=== PATIENT | male | born 1970 | race Caucasian/White ===

== ENCOUNTER → 2018-10-24 15:29 | Outpatient (CLI) | payer OTHER, SELFPAY ==
--- NOTE | 2018-10-24 | DI.MRI.S_ITS ---
PROCEDURE: MR KNEE LT WO CON INDICATIONS: BILATERAL KNEE PAIN - left TECHNIQUE: Noncontrast sagittal PD fast spin echo and T2 fast spin echo with fat saturation, sagittal 3-D FLASH with fat saturation; coronal T1 spin echo and PD fast spin echo with fat saturation, and axial PD fast spin echo with fat saturation through the knee. COMPARISON: None. FINDINGS: Image quality: Excellent. Menisci: The medial and lateral menisci demonstrate normal morphology and internal signal. The meniscal root ligaments appear intact. Cruciate ligaments: The anterior and posterior cruciate ligaments appear intact. Medial structures: The medial collateral ligament appears intact. The posterior oblique ligament, semimembranosus tendon insertions, oblique popliteal ligament, and meniscocapsular junction appear intact. Visualized portions of the pes anserinus tendons appear normal. No abnormal bursal fluid. Lateral structures: The lateral collateral ligament, long and short heads of the biceps femoris tendon appear intact. The popliteus tendon appears normal; the popliteofibular ligament appears intact. The posterosuperior and anteroinferior popliteomeniscal fascicles appear intact. The arcuate and fabellofibular ligaments appear intact, on either side of the lateral inferior geniculate artery. Iliotibial band appears normal. Anterior structures: The quadriceps and patellar tendons appear intact. Patellar alignment is normal. No femoral trochlear dysplasia or ventral trochlear prominence. No edema in the infrapatellar fat pad. Bones and cartilage: No bone marrow contusions or fractures. There is mild thinning and fissuring of the articular cartilage of the medial femoral condyle. Small, focal, full-thickness articular cartilage defect noted at the patellar apex. Subchondral reactive change noted in the apex of the patella deep to the articular cartilage defect. Joint space: There is trace joint effusion. No Damian's cyst. Normal appearing synovial plicae are incidentally noted. IMPRESSION: 1. Small, full-thickness, articular cartilage defect at the apex of the patella. 2. Mild articular cartilage degenerative changes involving the medial femoral condyle. 3. Trace joint effusion. 4. No internal derangement. Dictated by: Sapna Barriga MD, PhD on 10/24/2018 at 18:05 Approved by: Sapna Barriga MD, PhD on 10/25/2018 at 8:58
--- NOTE | 2018-10-24 | DI.MRI.S_ITS ---
PROCEDURE: MR KNEE RT WO CON INDICATIONS: BILATERAL KNEE PAIN - right TECHNIQUE: Noncontrast sagittal PD fast spin echo and T2 fast spin echo with fat saturation, sagittal 3-D FLASH with fat saturation; coronal T1 spin echo and PD fast spin echo with fat saturation, and axial PD fast spin echo with fat saturation through the knee. COMPARISON: None. FINDINGS: Image quality: Excellent. Menisci: The medial and lateral menisci demonstrate normal morphology and internal signal. The meniscal root ligaments appear intact. Cruciate ligaments: The anterior and posterior cruciate ligaments appear intact. Medial structures: The medial collateral ligament appears intact. The posterior oblique ligament, semimembranosus tendon insertions, oblique popliteal ligament, and meniscocapsular junction appear intact. Visualized portions of the pes anserinus tendons appear normal. No abnormal bursal fluid. Lateral structures: The lateral collateral ligament, long and short heads of the biceps femoris tendon appear intact. The popliteus tendon appears normal; the popliteofibular ligament appears intact. The posterosuperior and anteroinferior popliteomeniscal fascicles appear intact. The arcuate and fabellofibular ligaments appear intact, on either side of the lateral inferior geniculate artery. Iliotibial band appears normal. Anterior structures: The quadriceps and patellar tendons appear intact. There is slight thickening with increased internal signal involving the patellar tendon compatible with mild tendinosis. Patellar alignment is normal. No femoral trochlear dysplasia or ventral trochlear prominence. No edema in the infrapatellar fat pad. Bones and cartilage: No bone marrow contusions or fractures. There is thinning and fissuring of the articular cartilage of the patellofemoral and medial compartments. Subchondral reactive change and cyst formation noted in the medial femoral condyle and the patella. Small tricompartmental marginal osteophytes. Joint space: There is physiologic knee joint fluid. No Damian's cyst. Normal appearing synovial plicae are incidentally noted. IMPRESSION: 1. 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 Mild lateral compartment osteoarthritis. 2. No internal derangement. Dictated by: Sapna Barriga MD, PhD on 10/24/2018 at 16:21 Approved by: Sapna Barriga MD, PhD on 10/25/2018 at 8:54
== END ==
PROVIDERS: Visit Provider General Practice
DX: M25.562 Pain in left knee (principal); M25.561 Pain in right knee; M17.11 Unilateral primary osteoarthritis, right knee
CPT/HCPCS: 73721

== ENCOUNTER → 2020-10-14 09:39 | Outpatient (CLI) | payer OTHER, SELFPAY ==
--- NOTE | 2020-10-14 | DI.MRI.S_ITS ---
PROCEDURE: MR HEAD/BRAIN WO CON INDICATIONS: Other amnesia TECHNIQUE: Noncontrast axial T1 spin echo, axial T2 fast spin echo, sagittal and axial FLAIR, coronal T2 fast spin echo, axial gradient echo, axial diffusion and ADC through the brain. COMPARISON: None. FINDINGS: Image quality: Excellent. CSF Spaces: Basal cisterns are patent. No extra-axial fluid collections. Ventricles are normal in size and shape. Brain: No intracranial masses or hemorrhage. Bender/white matter interface is normal. Brainstem appears normal. Diffusion-weighted images demonstrate no acute ischemic insult. No chronic ischemic insults. Normal intravascular flow voids are present. Skull and face: Calvarium has normal marrow signal. Orbits appear normal. Sinuses: Mild mucosal thickening in the bilateral sphenoid, ethmoid, and maxillary sinuses. Mastoids are clear. Sinuses and mastoids are otherwise clear. IMPRESSION: 1. Negative evaluation of the brain. No explanation for amnesia. 2. No acute process. No recent infarct. 3. Mild sinus disease. Dictated by: Zana Muhammad M.D. on 10/14/2020 at 10:23 Approved by: Zana Muhammad M.D. on 10/14/2020 at 10:24
== END ==
PROVIDERS: PCP Student in an Organized Health Care Education/Training Program; Referring Provider Student in an Organized Health Care Education/Training Program; Visit Provider Student in an Organized Health Care Education/Training Program
DX: R41.3 Other amnesia (principal); J32.8 Other chronic sinusitis
CPT/HCPCS: 70551

== ENCOUNTER → 2021-08-23 11:33 | Outpatient (CLI) | payer OTHER, SELFPAY ==
[2021-08-23 14:19] LABS: COVID19 -Nasal RAPID Negative (Negative)
== END ==
PROVIDERS: PCP Student in an Organized Health Care Education/Training Program; Visit Provider Family Medicine Sleep Medicine
DX: Z20.822 Contact with and (suspected) exposure to COVID-19 (principal)
CPT/HCPCS: 87635; C9803

== ENCOUNTER 2021-08-25 09:51 | Day surgery (SDC) | payer OTHER, SELFPAY ==
[2021-08-25 10:22] VITALS: BP 141/78; PULSE 69; RESP 14; TEMP 36.6; BMI 30.1
[2021-08-25] MEDS: SODIUM CHLORIDE 0.9% 1,000 ML 84 ML IV (10:22)
--- NOTE | 2021-08-25 10:58 | PM.HP.1 ---
History of Present Illness History of Present Illness Date Patient Seen: 08/25/21 Chief complaint: SDC Narrative: Screening Patient History Family & Social History Social History: household members spouse Tobacco & Substance use: Smoking Status Former smoker alcohol intake current alcohol intake frequency 3 or more drinks per day Substance Use Type does not use Meds Home Medications and Allergies Home Medications Medication Instructions Recorded Confirmed Type gabapentin 100 mg capsule 100 mg PO TID PRN #0 04/26/16 08/25/21 History multivitamin-iron 9 mg-folic acid 1 tab PO QDAY #60 tab 05/06/16 08/25/21 Rx 400 mcg-calcium and minerals tablet (Thera M Plus (ferrous fumarate)) atorvastatin 40 mg tablet 40 mg PO DAILY 08/25/21 08/25/21 History Allergies Allergy/AdvReac Type Severity Reaction Status Date / Time No Known Allergies Allergy Uncoded 08/25/21 10:09 Exam Vital Signs (past 8 hours): - 08/25/21 10:22 Temperature 97.8 F Pulse Rate 69 Respiratory Rate 14 Blood Pressure 141/78 H Oxygen Delivery Method Room Air Narrative Exam Narrative: Oropharynx free of lesions Chest clear to auscultation percussion Cardiac exam reveals no S3 or murmur Assessment & Plan Assessment & Plan narrative: First colonoscopy screening. Risks benefits alternatives been explained. Time Spent With Patient Critical Care time: I spent a total of [] minutes of critical care time on this patient's care today; this time is exclusive of procedural time.
--- NOTE | 2021-08-25 10:59 | P.OP.COLON_ITS ---
Operative Date/Time/Diagnoses Date of procedure: 08/25/21 Pre-op diagnosis: See indication and findings Procedure & Clinicians Study performed: Colonoscopy Indications: Screening Surgeon: Belen Cook Procedure Notes Procedure in detail: After informed consent was obtained the patient was placed in left lateral d ecubitus position. The video colonoscope was introduced to the rectum and slowly advanced cecum. On slow withdrawal mucosa was carefully examined. The scope was removed. The patient tolerated procedure well. Blood loss none Complications none Sedation mac Findings 1. Normal colonoscopy to cecum Patient will receive notification for follow-up colonoscopy in 10 years.
[2021-08-25 11:19] VITALS: BP 105/67; PULSE 70; RESP 15; TEMP 37.2; O2SAT 95
[2021-08-25 11:24] VITALS: BP 110/60; PULSE 70; RESP 18; O2SAT 96
[2021-08-25 11:29] VITALS: BP 113/72; PULSE 65; RESP 14; O2SAT 98
[2021-08-25 11:36] VITALS: BP 114/71; PULSE 62; RESP 15; O2SAT 98
== END 2021-08-25 11:48 | disposition home or self-care (01) ==
PROVIDERS: PCP Student in an Organized Health Care Education/Training Program; Referring Provider Internal Medicine Gastroenterology; Visit Provider Internal Medicine Gastroenterology
PROC: 0DJD8ZZ Inspection of Lower Intestinal Tract, Via Natural or Artificial Opening Endoscopic (ICD-10-PCS; CPT 45378; principal; 2021-08-25 11:00)
DX: Z12.11 Encounter for screening for malignant neoplasm of colon (principal)
CPT/HCPCS: 45378; J2704

== ENCOUNTER → 2022-04-28 10:23 | Outpatient (CLI) | payer OTHER, SELFPAY ==
--- NOTE | 2022-04-28 | DI.RAD.S_ITS ---
PROCEDURE: XR CHEST 2V INDICATIONS: HYPERTENSION TECHNIQUE: 2 views of the chest were acquired. COMPARISON: [facility], , CHEST FOR PICC PLACEMENT, 05/02/2016, 16:51. FINDINGS: Surgical changes and devices: None. Lungs and pleura: Lungs are clear. No pleural effusions or pneumothorax. Mediastinum: Mediastinal contours are normal. Heart size is normal. Bones and chest wall: No suspicious bony abnormalities. Soft tissues appear unremarkable. IMPRESSION: No acute cardiopulmonary abnormality. Dictated by: Darryl Bob M.D. on 04/28/2022 at 12:54 Approved by: Darryl Bob M.D. on 04/28/2022 at 12:54
== END ==
PROVIDERS: PCP Internal Medicine; Referring Provider Internal Medicine; Visit Provider Internal Medicine
DX: I10 Essential (primary) hypertension (principal)
CPT/HCPCS: 71046

== ENCOUNTER → 2023-07-03 15:41 | Outpatient (CLI) | payer OTHER, SELFPAY ==
--- NOTE | 2023-07-03 | DI.US.S_ITS ---
PROCEDURE: US RENAL COMPLETE INDICATIONS: ABDOMINAL PAIN TECHNIQUE: Real-time scanning was performed of the kidneys and bladder, with image documentation. COMPARISON: None. FINDINGS: Kidneys: Kidneys are normal in size. Right kidney measures 10.2 cm long; left kidney measures 12.0 cm long. Right renal cortical thickness is 1.6 cm; left renal cortical thickness is 1.7 cm. Renal cortical echotexture is normal. No hydronephrosis or nephrolithiasis. No suspicious solid mass lesions. Bladder: Pre-void bladder volume is 121.0 mL. Post-void residual is 4.0 mL. Pre-void images demonstrate no intraluminal masses or stones. On pre-void images, bilateral ureteral jets are noted with color Doppler interrogation. (Of note, ureteral jets may not be detectable in up to 25% of cases due to insufficient differences in specific gravity between ureteral and bladder urine). Miscellaneous: No free pelvic fluid. IMPRESSION: No hydronephrosis or postvoid residual. Dictated by: Phuong Garner M.D. on 07/03/2023 at 17:26 Approved by: Phuong Garner M.D. on 07/03/2023 at 17:26
--- NOTE | 2023-07-03 | DI.RAD.S_ITS ---
PROCEDURE: XR LUMBAR SPINE MIN 4V INDICATIONS: ABDOMINAL PAIN TECHNIQUE: 5 views of the lumbar spine were acquired, including bilateral oblique views. COMPARISON: None. FINDINGS: Bones: 5 nonrib-bearing vertebrae are present. There is normal bony alignment. No vertebral body compression fractures. No suspicious bony lesions. Soft tissues: Overlying bowel gas pattern is normal. No suspicious soft tissue calcifications. Oblique images: No pars defects. IMPRESSION: No acute compression fracture or spondylolisthesis. No gross pars defects or significant bony foraminal stenosis. Dictated by: Alejandro Payan M.D. on 07/03/2023 at 16:53 Approved by: Alejandro Payan M.D. on 07/03/2023 at 16:53
== END ==
PROVIDERS: PCP Internal Medicine; Referring Provider Internal Medicine; Visit Provider Internal Medicine
DX: M54.50 Low back pain, unspecified (principal); R10.9 Unspecified abdominal pain
CPT/HCPCS: 72110; 76770